=== PATIENT | female | born 1950 | race African-American/Black ===

== ENCOUNTER 2019-08-31 12:35 | Emergency (ER) | payer MEDICARE, OTHER ==
[~2019-08-31] VITALS: Ht 157.5 cm; Wt 45.0 kg
[2019-08-31 13:39] VITALS: BP 129/82
--- NOTE | 2019-08-31 13:42 | NUR ---
PT REFUSES WHEELCHAIR.
--- NOTE | 2019-08-31 14:03 | NUR ---
PT HERE WITH NECK PAIN, STATES X 1 MONTH WITH DIFFICULTY MOVING IT.
[2019-08-31] MEDS ORDERED: DIAZEPAM 5 MG TABLET ONE (14:22)
[2019-08-31] MEDS ORDERED: KETOROLAC 30 MG/1 ML ONE (14:22)
--- NOTE | 2019-08-31 14:26 | NUR ---
PT MEDICATED PER ORDERS.
[2019-08-31] MEDS ORDERED: DIAZEPAM 5 MG TABLET PO ONE (14:30)
[2019-08-31] MEDS ORDERED: KETOROLAC 30 MG/1 ML IM ONE (14:30)
--- NOTE | 2019-08-31 15:18 | NUR ---
Patient/Caregiver given discharge instructions and they have confirmed that they understand the instructions. Patient ambulatory with steady gait.
== END 2019-08-31 15:22 | disposition home or self-care (01) ==
LOC: ED 14:50
DX: S16.1XXA Strain of muscle, fascia and tendon at neck level, initial encounter (principal); X58.XXXA Exposure to other specified factors, initial encounter; Y93.89 Activity, other specified; Y92.89 Other specified places as the place of occurrence of the external cause; Y99.8 Other external cause status
CPT/HCPCS: 96372; 99283; J1885